=== PATIENT | female | born 1945 | race Hispanic/Latino ===

== ENCOUNTER 2017-11-13 09:39 | Emergency (ER) | payer BC, MEDICARE ==
[2017-11-13] MEDS ORDERED: TETRACAINE HCL 0.5% 4 ML OPHTH SOLN ONE (10:11)
[2017-11-13] MEDS ORDERED: NA BORATE/BORIC AC/H2O/NACL 120 ML OPHTH IRRIG SOLN ONE (10:12)
[2017-11-13] MEDS ORDERED: FLUORESCEIN SODIUM 0.6 MG STRIP ONE (10:12)
== END 2017-11-13 11:07 | disposition home or self-care (01) ==
LOC: EDH 09:39
DX: S05.01XA Injury of conjunctiva and corneal abrasion without foreign body, right eye, initial encounter (principal); H11.31 Conjunctival hemorrhage, right eye; H10.9 Unspecified conjunctivitis; M81.0 Age-related osteoporosis without current pathological fracture; Z88.2 Allergy status to sulfonamides; X58.XXXA Exposure to other specified factors, initial encounter; Y93.89 Activity, other specified; Y92.89 Other specified places as the place of occurrence of the external cause; Y99.8 Other external cause status

== ENCOUNTER 2019-11-30 03:19 | Inpatient (IN) | payer MEDICARE ==
[~2019-11-30] VITALS: Ht 162.6 cm; Wt 69.6 kg
[2019-11-30] MEDS ORDERED: ACETAMINOPHEN EXTRA STRENGTH 500 MG TABLET ONE (03:58)
[2019-11-30] MEDS ORDERED: IPRATROPIUM/ALBUTEROL SULFATE 3 ML SOLUTION IH ONE ×5 (04:07→17:29)
[2019-11-30 04:15] LABS: BASOPHILS % (AUTO) 0.1 % (0.0-5.0); EOSINOPHILS % (AUTO) 0.2 % (0.0-8.0); HEMATOCRIT 33.3 % (36-48); LYMPHOCYTES % (AUTO) 1.8 % (21.0-51.0); MEAN CORPUSCULAR HEMOGLOBIN 33.5 pg (27.0-33.0); MEAN CORPUSCULAR HGB CONC 34.2 g/dL (32.0-36.0); MEAN CORPUSCULAR VOLUME 97.9 fL (79-99); MONOCYTES % (AUTO) 5.9 % (3.0-13.0); NEUTROPHILS % (AUTO) 91.6 % (40.0-77.0); PLATELET COUNT (AUTO) 119 K/uL (130-400); RED CELL DISTRIBUTION WIDTH 14.6 % (11.0-15.5)
[2019-11-30 04:18] LABS: APPEARANCE,URINE Clear (CLEAR); BILIRUBIN,URINE Negative (NEGATIVE); COLOR,URINE Yellow (YELLOW); GLUCOSE, URINE (UA) Negative (NEGATIVE); KETONES,URINE Negative (NEGATIVE); LEUKOCYTE ESTERASE ,URINE Negative (NEGATIVE); NITRATE,URINE Negative (NEGATIVE); OCCULT BLOOD,URINE Negative (NEGATIVE); PROTEIN,URINE Negative (NEGATIVE)
[2019-11-30] MEDS ORDERED: METHYLPREDNISOLONE SOD SUCC 125MG/2ML VIAL ONE (04:18)
[2019-11-30 04:21] LABS: CARBON DIOXIDE 27 mmol/L (21-32); CHLORIDE 102 mmol/L (101-111); CREATININE 0.6 mg/dL (0.5-1.5); GLOMERULAR FILTR. RATE CALC 104 mL/min (>60); GLUCOSE,RANDOM 139 mg/dL (70-105); POTASSIUM 3.5 mmol/L (3.5-5.1); SODIUM SERUM 139 mmol/L (136-145); UREA NITROGEN, BLOOD 13 mg/dL (7-18)
[2019-11-30 04:23] LABS: INR 0.86 (0.85-1.15); PARTIAL THROMBOPLASTIN TIME 23.9 SEC (26.3-35.5); PROTHROMBIN TIME 9.3 SEC (9.6-11.6)
[2019-11-30 04:28] LABS: ABG BASE EXCESS 0.1 mmol/L (-2.0-3.0); ABG HCO3 22.5 mmol/L (21.0-28.0); ABG PCO2 31 mmHg (32-45)
[2019-11-30] MEDS ORDERED: CEFTRIAXONE SODIUM 1 GM ONE (04:32)
[2019-11-30] MEDS ORDERED: SODIUM CHLORIDE 0.9% 100 ML IV ONE (04:33)
[2019-11-30 04:42] LABS: ALANINE AMINOTRANSFERASE 42 U/L (12-78); ALBUMIN 3.5 g/dL (3.5-5.0); ASPARTATE AMINOTRANSFERASE 34 U/L (10-37); BILIRUBIN,TOTAL 0.9 mg/dL (0.2-1.0); CREATINE KINASE, TOTAL 35 U/L (21-232); MYOGLOBIN 39 ng/mL (10-92); TOTAL PROTEIN, SERUM 6.3 g/dL (6.0-8.3); TROPONIN I < 0.04 ng/mL (0.00-0.06)
[2019-11-30] MEDS ORDERED: LEVOFLOXACIN 750 MG/D5W 150 ML 150 ML ONE (04:54)
[2019-11-30] MEDS ORDERED: SODIUM CHLORIDE 0.9% 1000ML 1,000 ML IV ONE ×2 (05:30→09:48)
[2019-11-30] MEDS ORDERED: SODIUM CHLORIDE 0.9% 1000ML 1,000 ML IV SCH ×2 (06:10→06:15)
[2019-11-30] MEDS ORDERED: ACETAMINOPHEN 325 MG TAB PO PRN ×2 (06:15)
[2019-11-30] MEDS ORDERED: NITROGLYCERIN 0.4 MG SL TAB SL PRN (06:15)
[2019-11-30] MEDS ORDERED: AZITHROMYCIN 500MG+NS 250ML 250 ML IV SCH (06:15)
[2019-11-30] MEDS ORDERED: ZOSYN 3.375GM+NS 50ML 50 ML IV SCH (06:15)
[2019-11-30] MEDS ORDERED: DIPHENHYDRAMINE HCL 25 MG CAPSULE PO PRN (06:15)
[2019-11-30] MEDS ORDERED: CEFTRIAXONE SODIUM 1 GM IVP SCH (06:45)
[2019-11-30] MEDS ORDERED: AZITHROMYCIN 500MG+NS 250ML 250 ML IV ONE (09:23)
[2019-11-30] MEDS ORDERED: FAMOTIDINE/PF 20 MG/2 ML VIAL IV ONE ×2 (09:23→20:49)
[2019-11-30] MEDS ORDERED: SODIUM CHLORIDE 3% FOR INHALATION 4 ML/AMP VIAL.NEB IH ONE (09:41)
--- NOTE | 2019-11-30 11:09 | NUR ---
ACID REFLEX AND HAS TO HAVE ESOPHAGEAL DILATED Addendum: 11/30/19 at 1130 by JAYLON HAYNES RN RN Amended: Links added.
--- NOTE | 2019-11-30 11:11 | NUR ---
UTI Addendum: 11/30/19 at 1130 by JAYLON HAYNES RN RN Amended: Links added.
[2019-11-30] MEDS ORDERED: CETI-193 PO (11:54)
[2019-11-30] MEDS ORDERED: MULT-1192 PO (11:54)
[2019-11-30] MEDS ORDERED: MACR100 PO (11:54)
[2019-11-30] MEDS ORDERED: ASCO500T92 PO (11:54)
[2019-11-30] MEDS ORDERED: ALBU6.7H9 IH (11:54)
[2019-11-30] MEDS ORDERED: CALC-190 PO (11:54)
[2019-11-30] MEDS ORDERED: BUDE10.2 IH (11:54)
[2019-11-30] MEDS ORDERED: [UNRECOGNIZED DRUG - OTHER] PO (11:54)
[2019-11-30] MEDS ORDERED: OMEP40CA13 PO (11:54)
[2019-11-30] MEDS ORDERED: FLUT16H NASAL (11:54)
[2019-11-30] MEDS ORDERED: DENO60DI SQ ×2 (11:54)
[2019-11-30] MEDS ORDERED: HYDR12.54 PO (11:54)
[2019-11-30] MEDS ORDERED: CARB30DR OP (11:54)
[2019-11-30] MEDS ORDERED: MV-M1TAB20 PO (11:54)
[2019-11-30] MEDS: FAMOTIDINE/PF 20 MG/2 ML VIAL IV SCH ×2 (11:55→21:00)
[2019-11-30] MEDS ORDERED: METHYLPREDNISOLONE SOD SUCC 40MG/ML 1ML IVP SCH (12:00)
[2019-11-30] MEDS: IPRATROPIUM/ALBUTEROL SULFATE 3 ML SOLUTION IH SCH ×3 (15:30→22:37)
[2019-11-30] MEDS ORDERED: LACTATED RINGERS 1000ML 1,000 ML IV ONE (16:43)
[2019-11-30] MEDS ORDERED: LACTATED RINGERS 1000ML IV SCH ×2 (16:45→17:00)
[2019-11-30 17:44] LABS: ABG HCO3 21.9 mmol/L (21.0-28.0); ABG OXYGEN SATURATION 97.4 % (95.0-99.0); ABG PCO2 32 mmHg (32-45)
[2019-11-30] MEDS: BUDESONIDE 0.5 MG/2 ML INH IH SCH (18:00)
[2019-11-30] MEDS ORDERED: METHYLPREDNISOLONE SOD SUCC 40MG/ML 1ML ONE (20:48)
[2019-11-30] MEDS ORDERED: OSELTAMIVIR PHOSPHATE 75 MG CAP ONE (20:49)
[2019-11-30] MEDS: OSELTAMIVIR PHOSPHATE 75 MG CAP PO SCH (21:00)
[2019-11-30] MEDS: METHYLPREDNISOLONE SOD SUCC 40MG/ML 1ML IVP SCH (21:00)
[2019-11-30] MEDS ORDERED: BUDESONIDE 0.5 MG/2 ML INH IH ONE (22:38)
--- NOTE | 2019-11-30 23:45 | NUR ---
PATIENT ARRIVED TO ROOM, DENIES ANY COMPLAINTS OF PAIN OR DISCOMFORT AT PRESENT. CALL [facility] WITHIN REACH.
[2019-11-30 23:58] VITALS: BP 149/72
[2019-12-01] MEDS: IPRATROPIUM/ALBUTEROL SULFATE 3 ML SOLUTION IH SCH ×5 (03:02→23:14)
[2019-12-01 03:40] VITALS: BP 125/61
[2019-12-01] MEDS: BUDESONIDE 0.5 MG/2 ML INH IH SCH ×2 (07:10→18:26)
[2019-12-01 08:16] VITALS: BP 126/60
[2019-12-01] MEDS: FAMOTIDINE/PF 20 MG/2 ML VIAL IV SCH ×2 (09:37→21:04)
[2019-12-01] MEDS: METHYLPREDNISOLONE SOD SUCC 40MG/ML 1ML IVP SCH (09:37)
[2019-12-01] MEDS: OSELTAMIVIR PHOSPHATE 75 MG CAP PO SCH ×2 (09:37→21:04)
[2019-12-01] MEDS: AZITHROMYCIN 500MG+NS 250ML 250 ML IV SCH (09:38)
[2019-12-01 09:43] LABS: BASOPHILS % (AUTO) 0.1 % (0.0-5.0); HEMATOCRIT 27.6 % (36-48); LYMPHOCYTES % (AUTO) 1.1 % (21.0-51.0); MEAN CORPUSCULAR HEMOGLOBIN 33.7 pg (27.0-33.0); MEAN CORPUSCULAR HGB CONC 34.1 g/dL (32.0-36.0); MEAN CORPUSCULAR VOLUME 98.9 fL (79-99); MONOCYTES % (AUTO) 5.2 % (3.0-13.0); NEUTROPHILS % (AUTO) 93.1 % (40.0-77.0); PLATELET COUNT (AUTO) 122 K/uL (130-400); RED BLOOD CELL COUNT(AUTO) 2.79 MIL/uL (4.00-5.50); RED CELL DISTRIBUTION WIDTH 14.8 % (11.0-15.5); WHITE BLOOD COUNT (AUTO) 9.2 K/uL (4.8-10.8)
[2019-12-01 10:21] LABS: BILIRUBIN,TOTAL 0.7 mg/dL (0.2-1.0); TOTAL PROTEIN, SERUM 6.3 g/dL (6.0-8.3)
[2019-12-01 10:27] LABS: CREATININE 0.5 mg/dL (0.5-1.5)
[2019-12-01 10:31] LABS: POTASSIUM 2.9 mmol/L (3.5-5.1)
[2019-12-01] MEDS ORDERED: POTASSIUM CHLORIDE 10% ELIXIR 20 MEQ/15 ML UDCUP PO PRN (10:45)
[2019-12-01] MEDS ORDERED: LIDOCAINE HCL-MPF 1% 2ML VIAL IV PRN (10:45)
[2019-12-01] MEDS ORDERED: POTASSIUM CHLORIDE 20MEQ/100ML 100 ML IV PRN (10:45)
[2019-12-01 11:47] VITALS: BP 143/88
[2019-12-01] MEDS: ONDANSETRON HCL 4 MG/2 ML VIAL IV PRN (12:10)
[2019-12-01] MEDS: POTASSIUM CHLORIDE 20 MEQ ERTAB PO PRN ×4 (12:10→21:04)
[2019-12-01 16:14] VITALS: BP 143/59
--- NOTE | 2019-12-01 16:38 | NUR ---
INITIAL Patient lives with spouse,, Irving Bartlett, . Patient is from out of town and is visiting friends. No home services. DME: O2 concentrator/portable thru [facility]. Patient is able to complete ADL's independently and drives. No local PCP. Pharmacy is [facility] located on [facility] in [place]. DCP is home. Addendum: 12/01/19 at 1640 by SHIREEN ROBERTS SS Amended: Links added.
[2019-12-01] MEDS ORDERED: POTASSIUM CHLORIDE 20 MEQ ERTAB PO SCH (18:30)
[2019-12-01 19:52] VITALS: BP 120/59
[2019-12-01 23:29] VITALS: BP 138/69
[2019-12-02 03:28] VITALS: BP 114/54
[2019-12-02 04:05] LABS: BASOPHILS % (AUTO) 0.1 % (0.0-5.0); HEMATOCRIT 28.5 % (36-48); MEAN CORPUSCULAR HEMOGLOBIN 33.7 pg (27.0-33.0); MEAN CORPUSCULAR VOLUME 102.2 fL (79-99); MONOCYTES % (AUTO) 4.6 % (3.0-13.0); NEUTROPHILS % (AUTO) 91.5 % (40.0-77.0); PLATELET COUNT (AUTO) 143 K/uL (130-400); RED BLOOD CELL COUNT(AUTO) 2.79 MIL/uL (4.00-5.50); RED CELL DISTRIBUTION WIDTH 14.9 % (11.0-15.5); WHITE BLOOD COUNT (AUTO) 7.9 K/uL (4.8-10.8)
[2019-12-02 04:36] LABS: ALBUMIN 2.8 g/dL (3.5-5.0); BILIRUBIN,TOTAL 0.6 mg/dL (0.2-1.0); CREATININE 0.5 mg/dL (0.5-1.5); POTASSIUM 3.8 mmol/L (3.5-5.1); TOTAL PROTEIN, SERUM 6.3 g/dL (6.0-8.3)
[2019-12-02] MEDS: BUDESONIDE 0.5 MG/2 ML INH IH SCH ×2 (06:36→18:44)
[2019-12-02] MEDS: IPRATROPIUM/ALBUTEROL SULFATE 3 ML SOLUTION IH SCH ×4 (06:36→23:39)
[2019-12-02 08:25] VITALS: BP 122/59
[2019-12-02] MEDS: LEVOFLOXACIN 750 MG/D5W 150 ML 150 ML IV SCH (08:33)
[2019-12-02] MEDS: OSELTAMIVIR PHOSPHATE 75 MG CAP PO SCH ×2 (09:29→19:52)
[2019-12-02] MEDS: FAMOTIDINE/PF 20 MG/2 ML VIAL IV SCH ×2 (09:29→19:52)
[2019-12-02] MEDS: PREDNISONE 20 MG TABLET PO SCH (09:29)
[2019-12-02] MEDS: AZITHROMYCIN 500MG+NS 250ML 250 ML IV SCH (09:30)
[2019-12-02] MEDS ORDERED: GUAIFENESIN-DM 200/20 MG 10 ML PO PRN ×2 (11:30→11:45)
[2019-12-02 11:37] VITALS: BP 136/71
[2019-12-02] MEDS ORDERED: GUAIFENESIN-DM 200/20 MG 10 ML PO SCH (11:45)
[2019-12-02 16:15] VITALS: BP 134/68
[2019-12-02] MEDS ORDERED: POLYETHYLENE GLYCOL 3350 17 GM POWD.PACK ONE (20:00)
--- NOTE | 2019-12-02 20:00 | NUR ---
PT REQUESTED MIRALAX, DUE TO NO BM IN SEVERAL DAYS. NO FURTHER CONCERNS. ABLE TO TAKE MEDICATIONS. AMBULATING. IN ROOM AIR. PT IS STABLE AT THIS TIME.
[2019-12-02 20:37] VITALS: BP 148/72
[2019-12-03] VITALS: BP 139/64
[2019-12-03 04:00] VITALS: BP 150/68
[2019-12-03 04:54] LABS: EOSINOPHILS % (AUTO) 0.2 % (0.0-8.0); LYMPHOCYTES % (AUTO) 4.9 % (21.0-51.0); MEAN CORPUSCULAR HEMOGLOBIN 33.5 pg (27.0-33.0); MEAN CORPUSCULAR HGB CONC 33.9 g/dL (32.0-36.0); MEAN CORPUSCULAR VOLUME 98.6 fL (79-99); MONOCYTES % (AUTO) 6.6 % (3.0-13.0); NEUTROPHILS % (AUTO) 86.9 % (40.0-77.0); PLATELET COUNT (AUTO) 148 K/uL (130-400); RED BLOOD CELL COUNT(AUTO) 2.84 MIL/uL (4.00-5.50); RED CELL DISTRIBUTION WIDTH 14.5 % (11.0-15.5); WHITE BLOOD COUNT (AUTO) 5.1 K/uL (4.8-10.8)
[2019-12-03 05:26] LABS: ALBUMIN 2.9 g/dL (3.5-5.0); BILIRUBIN,TOTAL 0.8 mg/dL (0.2-1.0); CREATININE 0.5 mg/dL (0.5-1.5); POTASSIUM 3.2 mmol/L (3.5-5.1); TOTAL PROTEIN, SERUM 5.9 g/dL (6.0-8.3)
[2019-12-03] MEDS: POTASSIUM CHLORIDE 20 MEQ ERTAB PO PRN ×3 (06:03→09:47)
[2019-12-03] MEDS: BUDESONIDE 0.5 MG/2 ML INH IH SCH ×2 (06:13→18:40)
[2019-12-03] MEDS: IPRATROPIUM/ALBUTEROL SULFATE 3 ML SOLUTION IH SCH ×4 (06:13→23:23)
[2019-12-03 08:00] VITALS: BP 160/74
[2019-12-03] MEDS: LEVOFLOXACIN 750 MG/D5W 150 ML 150 ML IV SCH (08:16)
[2019-12-03] MEDS: FAMOTIDINE/PF 20 MG/2 ML VIAL IV SCH ×2 (09:45→19:38)
[2019-12-03] MEDS: AZITHROMYCIN 500MG+NS 250ML 250 ML IV SCH (09:45)
[2019-12-03] MEDS: OSELTAMIVIR PHOSPHATE 75 MG CAP PO SCH ×2 (09:46→19:38)
[2019-12-03] MEDS: PREDNISONE 20 MG TABLET PO SCH (09:46)
[2019-12-03] MEDS: ONDANSETRON HCL 4 MG/2 ML VIAL IV PRN (11:34)
[2019-12-03] MEDS ORDERED: GUAIFENESIN-DM 200/20 MG 10 ML PO SCH (12:00)
[2019-12-03] MEDS ORDERED: ENOXAPARIN SODIUM 30 MG/0.3 ML SQ SCH (12:00)
[2019-12-03] MEDS ORDERED: POTASSIUM CHLORIDE 20 MEQ ERTAB PO SCH (12:00)
[2019-12-03 12:01] VITALS: BP 133/63
[2019-12-03] MEDS: GUAIFENESIN-DM 200/20 MG 10 ML PO SCH ×3 (13:19→23:41)
[2019-12-03 15:51] VITALS: BP 126/70
--- NOTE | 2019-12-03 17:01 | NUR ---
[id number] patient signed IM Letter, I faxed IM Letter to [phone] and placed in chart under consent tab
[2019-12-03] MEDS ORDERED: LACTULOSE 20 GM/30 ML UDCUP ONE (19:47)
[2019-12-03 20:47] VITALS: BP 148/70
--- NOTE | 2019-12-03 21:00 | NUR ---
PT GIVEN ONE DOSE OF LACTULOSE. STILL HAS HAD NO BM. POSSIBLE DC FOR THE AM. ROOM AIR. NO DISTRESS NOTED. NO PAIN STATED.
[2019-12-04 00:01] VITALS: BP 155/71
[2019-12-04 04:00] VITALS: BP 145/70
[2019-12-04 04:12] LABS: EOSINOPHILS % (AUTO) 0.5 % (0.0-8.0); HEMATOCRIT 28.1 % (36-48); LYMPHOCYTES % (AUTO) 5.3 % (21.0-51.0); MEAN CORPUSCULAR HEMOGLOBIN 33.3 pg (27.0-33.0); MEAN CORPUSCULAR HGB CONC 33.8 g/dL (32.0-36.0); MEAN CORPUSCULAR VOLUME 98.6 fL (79-99); MONOCYTES % (AUTO) 7.2 % (3.0-13.0); NEUTROPHILS % (AUTO) 85.1 % (40.0-77.0); PLATELET COUNT (AUTO) 169 K/uL (130-400); RED BLOOD CELL COUNT(AUTO) 2.85 MIL/uL (4.00-5.50); RED CELL DISTRIBUTION WIDTH 14.2 % (11.0-15.5); WHITE BLOOD COUNT (AUTO) 4.3 K/uL (4.8-10.8)
[2019-12-04 04:38] LABS: BILIRUBIN,TOTAL 0.8 mg/dL (0.2-1.0); CREATININE 0.4 mg/dL (0.5-1.5); POTASSIUM 3.4 mmol/L (3.5-5.1)
[2019-12-04] MEDS: GUAIFENESIN-DM 200/20 MG 10 ML PO SCH (05:41)
[2019-12-04] MEDS ORDERED: LACTULOSE 20 GM/30 ML UDCUP ONE (05:47)
[2019-12-04] MEDS ORDERED: LACTULOSE 20 GM/30 ML UDCUP PO PRN (06:00)
[2019-12-04] MEDS: BUDESONIDE 0.5 MG/2 ML INH IH SCH (06:26)
[2019-12-04] MEDS: IPRATROPIUM/ALBUTEROL SULFATE 3 ML SOLUTION IH SCH (06:26)
[2019-12-04] MEDS: POTASSIUM CHLORIDE 20 MEQ ERTAB PO PRN ×2 (06:31→06:32)
[2019-12-04 08:02] VITALS: BP 148/72
[2019-12-04] MEDS ORDERED: ENOXAPARIN SODIUM 30 MG/0.3 ML SQ SCH (09:00)
[2019-12-04] MEDS: AZITHROMYCIN 500MG+NS 250ML 250 ML IV SCH (09:00)
[2019-12-04] MEDS: LEVOFLOXACIN 750 MG/D5W 150 ML 150 ML IV SCH (09:00)
[2019-12-04] MEDS ORDERED: IPRA3AMP24 IH (09:53)
[2019-12-04] MEDS ORDERED: BUDE0.5A3 IH (09:53)
[2019-12-04] MEDS ORDERED: NEBU1KIT3 MC (09:53)
[2019-12-04] MEDS ORDERED: PRED20TA3 PO (09:53)
[2019-12-04] MEDS ORDERED: LEVO500T2 PO (09:53)
[2019-12-04] MEDS: PREDNISONE 20 MG TABLET PO SCH (10:08)
[2019-12-04] MEDS: OSELTAMIVIR PHOSPHATE 75 MG CAP PO SCH (10:08)
[2019-12-04] MEDS: FAMOTIDINE/PF 20 MG/2 ML VIAL IV SCH (10:08)
--- NOTE | 2019-12-04 11:52 | NUR ---
DISCHARGE INSTRUCTIONS/INFORMATION GIVEN TO PATIENT. TEACH BACK METHOD UTILIZED TO EDUCATE PATIENT ON NEW MEDS PRESCRIBED, S/S TO MONITOR, WHEN TO CALL MD, AND F/U APPOINTMENTS. INSTRUCTED BY DR. BERG, PATIENT REQUESTED FOR CD OF RADIOLOGY TESTS SO SHE CAN SHOW HER PCP ONCE SHE GETS BACK TO [place]. CD WAS HANDED TO PATIENT BY BECKIE FROM [facility]. PIV REMOVED. TIP WAS INTACT. TELE REMOVED AND RETURNED. ALL BELONGINGS WERE PACKED AND TAKEN HOME. PATIENT WAS SAFELY WHEELED TO PRIVATE VEHICLE BY AMADO MONTANO.
== END 2019-12-04 11:31 | disposition home or self-care (01) | DRG 871 ==
LOC: EDH 03:19 → EDHIP 06:00 → 2AH 23:10
PROVIDERS: ADMIT Internal Medicine; ATTEND Internal Medicine
DX: A41.9 Sepsis, unspecified organism (principal); J96.01 Acute respiratory failure with hypoxia; J12.3 Human metapneumovirus pneumonia; J44.1 Chronic obstructive pulmonary disease with (acute) exacerbation; J44.0 Chronic obstructive pulmonary disease with (acute) lower respiratory infection; R65.20 Severe sepsis without septic shock; M81.0 Age-related osteoporosis without current pathological fracture; E87.6 Hypokalemia; D64.9 Anemia, unspecified; I10 Essential (primary) hypertension; R53.81 Other malaise; Z87.891 Personal history of nicotine dependence; Z85.118 Personal history of other malignant neoplasm of bronchus and lung; Z88.2 Allergy status to sulfonamides
CPT/HCPCS: 36415; 36600; 71045; 71250; 80053; 81003; 82550; 82803; 83605; 83874; 83880; 84145; 84484; 85025; 85610; 85730; 86140; 87040; 87088; 87449; 87486; 87581; 87633; 87798; 87804; 87880; 93005; 94640; 94664; 99291; G0378; J0456; J0696; J1650; J1956; J2405; J2920; J2930; J3480; J3490; J7030; J7120